=== PATIENT | male | born 1995 | race Two or more races ===

== ENCOUNTER 2017-09-21 12:07 | Emergency (ER) | payer SELFPAY ==
[~2017-09-21] VITALS: Ht 170.2 cm; Wt 84.0 kg
[2017-09-21] MEDS ORDERED: ALBUTEROL (0.083%) 2.5MG/3ML NEB HHN STA ×3 (12:22→15:21)
[2017-09-21] MEDS ORDERED: IPRATROPIUM BROMIDE (0.02%) 0.5MG/2.5ML NEB HHN STA ×3 (12:22→15:21)
[2017-09-21] MEDS ORDERED: METHYLPREDNISOLONE SOD SUCC 125 MG/2 ML VIAL IV STA (12:22)
[2017-09-21] MEDS ORDERED: SODIUM CHLORIDE 0.9% 1,000 ML IV ONE (12:30)
[2017-09-21 17:50] VITALS: BP 126/79
== END 2017-09-21 18:00 | disposition home or self-care (01) ==
LOC: ER 13:23
DX: J45.901 Unspecified asthma with (acute) exacerbation (principal)
CPT/HCPCS: 71010; 94640; 96374; 99285; J2930; J7611; Z7610; J7030